=== PATIENT | female | born 1945 | race Caucasian/White ===

== ENCOUNTER → 2017-06-05 | Outpatient (CLI) | payer MEDICARE, OTHER ==
[~2017-06-05] MED LIST: AMARYL2 MG PO; ASPI-COR81 MG PO; CARVEDILOL6.25 M1 PO; ESTERIFIED ESTR PO; FUROSEMIDE 40MG40 M1 PO; GEMFIBROZIL600 M1 PO; LISINOPRIL 5MG T5 MG PO; MAXZIDE 25 MG-31 TA1 PO; METFORMIN HCL1000 MG PO; OMEPRAZOLE20 MG PO; POTASSIUM CHLO20 ME2 PO; PRAVACHOL40 MG PO; PROVENTIL0.09 MG/Ac IH; SYMBICORT1 AE1 IH; VENLAFAXINE HYD75 M1 PO
[2017-06-05 09:51] LABS: BUN 20 mg/dL (7-18)
[2017-06-05 10:05] LABS: GFR (ESTIMATED) 49 ML/MIN (59-)
== END ==
LOC: LAB 09:29
PROVIDERS: Internal Medicine Cardiovascular Disease
DX: I42.0 Dilated cardiomyopathy (principal); I10 Essential (primary) hypertension; I25.10 Atherosclerotic heart disease of native coronary artery without angina pectoris; R06.02 Shortness of breath